=== PATIENT | male | born 1945 | race Caucasian/White ===

== ENCOUNTER 2016-08-02 12:30 | Inpatient (IN) | payer MEDICARE, OTHER ==
[2016-08-12] MEDS ORDERED: CELECOXIB 100 MG CAPSULE PO ONE (06:00)
[2016-08-12] MEDS ORDERED: FAMOTIDINE 20MG TABLET PO ONE (06:00)
[2016-08-12] MEDS ORDERED: MECLIZINE 25 MG TABLET PO ONE (06:00)
[2016-08-12] MEDS ORDERED: VANCOMYCIN HCL 1,000 MG in 0.9 % SODIUM CHLORIDE 250ML 250 ML IVPB ONE (06:00)
[2016-08-12] MEDS ORDERED: ACETAMINOPHEN 1,000 MG/100 ML BTL IV ONE (06:00)
[2016-08-12] MEDS ORDERED: METOCLOPRAMIDE 10 MG TABLET PO ONE (06:00)
[2016-08-12] MEDS ORDERED: TRANEXAMIC ACID 1,000 MG/10 ML ML IV ONE (12:33)
[2016-08-12] MEDS ORDERED: BUPIVACAINE 0.5% W/EPI MPF 30 ML VIAL IVP ONE (12:33)
[2016-08-12] MEDS ORDERED: BUPIVACAINE LIPOSOME 266MG/20ML VIAL IV ONE (12:33)
[2016-08-12] MEDS ORDERED: VANCOMYCIN HCL 1 GM VIAL IVPB ONE (12:33)
[2016-08-12] MEDS ORDERED: MIDAZOLAM HCL 2MG/2ML VIAL IV ONE (13:29)
[2016-08-12] MEDS ORDERED: PROPOFOL 10 MG/ML VIAL IV ONE (13:29)
[2016-08-12] MEDS ORDERED: KETOROLAC 30 MG/ML VIAL IVP ONE (13:29)
[2016-08-12] MEDS ORDERED: FENTANYL PF 100MCG/2ML VIAL IV ONE (13:29)
[2016-08-12 13:49] LABS: ABO GROUP A; ANTIBODY SCREEN NEGATIVE (NEGATIVE); RH TYPE POSITIVE
[2016-08-12] MEDS ORDERED: HYDROMORPHONE HCL 2 MG/ML VIAL IM PRN (15:37)
[2016-08-12] MEDS ORDERED: ACETAMINOPHEN W/ CODEINE 300MG/30MG TABLET PO PRN ×2 (15:37)
[2016-08-12] MEDS ORDERED: DIPHENHYDRAMINE HCL 25 MG CAPSULE PO PRN (15:37)
[2016-08-12] MEDS ORDERED: HYDROCODONE/APAP 5/325MG TABLET PO PRN (15:37)
[2016-08-12] MEDS ORDERED: PROMETHAZINE HCL 12.5 MG in 0.9 % SODIUM CHLORIDE 100ML 50 ML IVPB PRN (15:37)
[2016-08-12] MEDS ORDERED: ZOLPIDEM TARTRATE 5 MG TABLET PO PRN (15:37)
[2016-08-12] MEDS ORDERED: HYDROCODONE/APAP 7.5/325MG TABLET PO PRN ×2 (15:37)
[2016-08-12] MEDS ORDERED: KETOROLAC 30 MG/ML VIAL IVP PRN ×2 (15:37)
[2016-08-12] MEDS ORDERED: NALOXONE 0.4 MG/1 ML VIAL IVP PRN (15:37)
[2016-08-12] MEDS ORDERED: ONDANSETRON HCL IV 4 MG/2 ML VIAL IVP PRN (15:37)
[2016-08-12] MEDS ORDERED: AL HYDROX/MAG HYDROX 30ML UD PO PRN (15:37)
[2016-08-12] MEDS ORDERED: BISACODYL 10 MG SUPP RC PRN (15:37)
[2016-08-12] MEDS ORDERED: ACETAMINOPHEN 325 MG TAB PO PRN (15:37)
[2016-08-12] MEDS ORDERED: ACETAMINOPHEN W/ CODEINE 300MG/60MG TABLET PO PRN ×2 (15:37)
[2016-08-12] MEDS ORDERED: MORPHINE SULFATE 5 MG/ML PFS IVP PRN ×4 (15:37)
[2016-08-12] MEDS ORDERED: TRAMADOL HCL 50 MG TABLET PO PRN ×2 (15:37)
[2016-08-12] MEDS ORDERED: MAGNESIUM HYDROXIDE 30 ML UDC PO PRN (15:37)
[2016-08-12] MEDS ORDERED: HYDROMORPHONE HCL 1 MG/ML CPJ IM PRN (15:37)
[2016-08-12] MEDS ORDERED: METOCLOPRAMIDE HCL 10 MG/2 ML VIAL IVP PRN (15:37)
[2016-08-12] MEDS ORDERED: DEXTROSE 5 % AND 0.9 % NACL 1,000 ML IV PRN (15:37)
[2016-08-12] MEDS: HYDROCODONE/APAP 5/325MG TABLET PO PRN (21:35)
[2016-08-12] MEDS ORDERED: PATIENT OWN MED: MONTELUKAST 10 MG PO SCH (22:00)
[2016-08-12] MEDS ORDERED: PATIENT OWN MED: PRAVASTATIN 80 MG PO SCH (22:00)
[2016-08-12] MEDS: DOCUSATE SODIUM 100 MG CAPSULE PO SCH (23:25)
[2016-08-12] MEDS: FERROUS SULFATE 325 MG TAB PO SCH (23:25)
[2016-08-12] MEDS: PATIENT OWN MED: OMEPRAZOLE 20 MG PO SCH (23:26)
[2016-08-12] MEDS: METOCLOPRAMIDE 10 MG PO SCH (23:26)
[2016-08-12] MEDS: PATIENT OWN MED: METFORMIN 1000 MG PO SCH (23:26)
[2016-08-13] MEDS: VANCOMYCIN HCL 1,000 MG in 0.9 % SODIUM CHLORIDE 250ML 250 ML IVPB SCH ×2 (01:06→12:22)
[2016-08-13 06:35] LABS: HEMATOCRIT 38.5 % (42.0-52.0); HEMOGLOBIN 12.1 gm/dl (14.0-18.0)
[2016-08-13] MEDS: HYDROCODONE/APAP 5/325MG TABLET PO PRN (07:43)
[2016-08-13] MEDS: METOCLOPRAMIDE 10 MG PO SCH (09:47)
[2016-08-13] MEDS: PATIENT OWN MED: METFORMIN 1000 MG PO SCH (09:47)
--- NOTE | 2016-08-13 09:48 | Rehab Evaluation ---
Patient Information - Patient Information Ordered Treatment: PT Evaluate and Treat Status: Initial Evaluation Surgery: Yes (TKA right) Date of Surgery: 08/12/16 Past Medical/Surgical Hx: PAST MEDICAL/SURGICAL HISTORY Past Surgical History rt ankle sx; back sx-upper & lower fusions; triple bypass sx; bilateral carpel tunnel release; rt 5th finger sx; [facility] RTC REPAIR left thumb sx; tonsillectomy PROSTATECTOMY PARTIAL PMH - Respiratory Hx Respiratory Disorders Yes Hx Chronic Obstructive Yes Pulmonary Disease (COPD) Hx Sleep Apnea Yes: WAITING FOR FITTING FOR CPAP Hx of SOB Yes Comment: has sinus problems, LOW O2 SAT RUNS AROUND 93- 94 PMH - Cardiovascular Hx Cardiovascular Disorders Yes Hx Cardiac Catheterization Yes: 1996 Hx Hypertension Yes Hx Coronary Artery Bypass Yes: triple bypass Graft Hx Heart Murmur Yes Exercise Tolerance Fair PMH - Neuro Hx Neurological Disorders Yes Hx Headaches Yes PMH - GI Hx Gastrointestinal Disorders Yes Hx Gastroesophageal Reflux Yes Hx Hiatal Hernia Yes Hx Weight Loss/Weight Gain No: EATING BETTER PMH - Hx Genitourinary Disorders Yes Hx Prostate Problems Yes: CA PMH - Endocrine Hx Endocrine Disorders Yes Hx Diabetes Yes Hx of IDDM Yes: OCC CHECKS BLLOD SUGARS Comment: BLOOD SUGARS RUNS AROUND 160'S PMH - Musculoskeletal Hx Musculoskeletal Disorders Yes Hx Arthritis Yes: rt knee PMH - Psych Hx Psychiatric Problems No PMH - Hematology/Oncology Hx Hematology/Oncology Yes Disorders Hx Cancer Yes Hx Radiation Therapy Yes: 2015 5X/WK X 8 WKS Precautions: [place], Fall - Time With Patient Total Time Spent With Patient (Min): 30 Treatment Procedures: Detail (Patient seen in room and already sitting up in chair, moved tray table and cryocuff and patient able to move sit to stand with CGA only, ambulated with FWW into l[place] and to stairs (about 100 feet) then able to safely ambulate down three steps with FWW folded and rail with proper technique, pivoted around and ambulated back up three steps with same rail and folded walker. Suggested use cane at home for safety on steps as long as has rail to use. Able to ambulate about 150 feet back to room then sat up in chair again with leg supported on tray table and call light close. Did review knee exercises seated: knee bending and straightening, ankle pumps, hip lift and did well.) Subjective Information - Subjective Information Per Patient (Patient lives with in single story condo, all living one floor. Has two steps in from garage and ramp from front entrance. Has prepared house for after surgery and has equipment. FWW here with him in hospital. Expects home health therapy after gets home today.) Objective Data - Pain Pain Present: Yes Pain Scale Used: minimal: ache - Mental Status Patient Orientation: Oriented x3 - Visual Perception Appears within normal limits for therapeutic activities - ROM Within normal limits (Except right knee about -10 degrees extension to 90 degrees flexion) - Strength/Tone Within normal limits (Except right knee 3/5 quads, hams 4+/5, hip 4/5) - Coordination Appears within normal limits for therapeutic activities - Bed Mobility Independent - Transfers Independent - Balance Balance Sitting: Good Balance Standing: Good - Sensation Intact - Gait Detail (Patient able to ambulate in lundy as far as wants to and able to perform stairs without difficulty today: WBAT with FWW.) - Special Tests No Therapy Assessment - Therapy Assessment Detail (Patient is doing extremely well this am and able to do all needs to do already to go home with .) Patient Education - Patient Education Teaching Topic: Equipment Use, Exercise/Activity Response: Return Demonstration Teaching Method: Discussion, Demonstration Teaching Recipient: Patient Barriers To Learning: None Problem List - Problem List Physical Therapy Problem List: Detail (Some issues with mobility with knee stiffness but very little at first day after surgery. Pain controlled and patient moving about quite well.) Goals - Goals Physical Therapy Goals: Independent with bed mobility, transfers and stairs for discharge home with . Prognosis - Prognosis Good (Patient already doing extremely well and has passed all skills necessary to go home with today.) Plan - Plan Physical Therapy Plan: Plan to see patient once more today if does not go home before scheduled appt. Patient has already passed all necessary skills to go home with .
[2016-08-13] MEDS: DOCUSATE SODIUM 100 MG CAPSULE PO SCH ×2 (09:49→09:59)
[2016-08-13] MEDS ORDERED: METOPROLOL 50 MG PO SCH (10:00)
[2016-08-13] MEDS: FERROUS SULFATE 325 MG TAB PO SCH (10:00)
[2016-08-13] MEDS ORDERED: RIVAROXABAN 10 MG TABLET PO SCH (10:00)
[2016-08-13] MEDS ORDERED: CETIRIZINE 10 MG PO SCH (10:00)
[2016-08-13] MEDS ORDERED: SAXAGLIPTIN 5 MG PO SCH (10:00)
[2016-08-13] MEDS ORDERED: LOSARTAN POTASSIUM 25 MG TABLET PO SCH (10:00)
[2016-08-13] MEDS ORDERED: LEVEMIR FLEXTOUCH 100 UNIT/ML INSULIN PEN SQ SCH (10:00)
[2016-08-13] MEDS ORDERED: CELECOXIB 100 MG CAPSULE PO SCH (10:00)
[2016-08-13] MEDS ORDERED: PATIENT OWN MED: AMLODIPINE 5 MG PO SCH (10:00)
[2016-08-13] MEDS ORDERED: VENLAFAXINE 25 MG PO SCH (10:00)
[2016-08-13] MEDS: PATIENT OWN MED: OMEPRAZOLE 20 MG PO SCH (10:43)
[2016-08-13] MEDS ORDERED: BUPIVACAINE 0.5% W/EPI MPF 30 ML VIAL IVP ONE (11:21)
[2016-08-13] MEDS ORDERED: ACETAMINOPHEN 1,000 MG/100 ML BTL IV ONE (11:21)
[2016-08-13] MEDS ORDERED: FAMOTIDINE 20MG TABLET PO ONE (11:21)
[2016-08-13] MEDS ORDERED: CELECOXIB 100 MG CAPSULE PO ONE (11:21)
[2016-08-13] MEDS ORDERED: METOCLOPRAMIDE 10 MG TABLET PO ONE (11:21)
[2016-08-13] MEDS ORDERED: MECLIZINE 25 MG TABLET PO ONE (11:21)
[2016-08-13] MEDS ORDERED: TRANEXAMIC ACID 1,000 MG/10 ML ML IV ONE (11:21)
--- NOTE | 2016-08-13 12:45 | Rehab Evaluation ---
Patient Information - Patient Information Diagnosis: Right TKA Ordered Treatment: OT Evaluate and Treat Status: Initial Evaluation Surgery: Yes (TKA right) Date of Surgery: 08/12/16 Past Medical/Surgical Hx: PAST MEDICAL/SURGICAL HISTORY Past Surgical History rt ankle sx; back sx-upper & lower fusions; triple bypass sx; bilateral carpel tunnel release; rt 5th finger sx; [facility] RTC REPAIR left thumb sx; tonsillectomy PROSTATECTOMY PARTIAL PMH - Respiratory Hx Respiratory Disorders Yes Hx Chronic Obstructive Yes Pulmonary Disease (COPD) Hx Sleep Apnea Yes: WAITING FOR FITTING FOR CPAP Hx of SOB Yes Comment: has sinus problems, LOW O2 SAT RUNS AROUND 93- 94 PMH - Cardiovascular Hx Cardiovascular Disorders Yes Hx Cardiac Catheterization Yes: 1996 Hx Hypertension Yes Hx Coronary Artery Bypass Yes: triple bypass Graft Hx Heart Murmur Yes Exercise Tolerance Fair PMH - Neuro Hx Neurological Disorders Yes Hx Headaches Yes PMH - GI Hx Gastrointestinal Disorders Yes Hx Gastroesophageal Reflux Yes Hx Hiatal Hernia Yes Hx Weight Loss/Weight Gain No: EATING BETTER PMH - Hx Genitourinary Disorders Yes Hx Prostate Problems Yes: [place] PMH - Endocrine Hx Endocrine Disorders Yes Hx Diabetes Yes Hx of IDDM Yes: OCC CHECKS BLLOD SUGARS Comment: BLOOD SUGARS RUNS AROUND 160'S PMH - Musculoskeletal Hx Musculoskeletal Disorders Yes Hx Arthritis Yes: rt knee PMH - Psych Hx Psychiatric Problems No PMH - Hematology/Oncology Hx Hematology/Oncology Yes Disorders Hx Cancer Yes Hx Radiation Therapy Yes: 2015 5X/WK X 8 WKS Premorbid Status: Detail (Pt lives with spouse in a 1st floor condo, no steps at front entrance, 2 small steps at rear entrance with a railing. He has a walk in shower with a seat and 1 grab bar, he usually stands to shower. Pt has an elevated toilet without grab bars. He and spouse share home mgmt, meal prep and laundry. He has a 2 wheeled walker.) Precautions: [place], Fall - Time With Patient Total Time Spent With Patient (Min): 30 Treatment Procedures: Detail (OT eval low complexity) Subjective Information - Subjective Information Per Patient Objective Data - Mental Status Patient Orientation: Oriented x3 - Visual Perception Appears within normal limits for therapeutic activities - ROM Within normal limits (Cesario UE AROM WNL) - Strength/Tone Within normal limits (Cesario UE MMT WNL) - Coordination Appears within normal limits for therapeutic activities - ADL's/IADL's Detail (Pt reports his assisted him with LE dressing this am, reviewed modified dressing techniques and available adaptive equipment. Pt and spouse feel he will have no problems at home with ADLs.) Therapy Assessment - Therapy Assessment Detail (Pt and spouse verbalized understanding of modified dressing techniques and use of equipment.) Problem List - Problem List Physical Therapy Problem List: Detail (Some issues with mobility with knee stiffness but very little at first day after surgery. Pain controlled and patient moving about quite well.) Occupational Therapy Problem List: Detail (No current OT problems identified.) Goals - Goals Physical Therapy Goals: Independent with bed mobility, transfers and stairs for discharge home with . Occupational Therapy Goals: No current OT goals identified. Prognosis - Prognosis Good Plan - Plan Physical Therapy Plan: Plan to see patient once more today if does not go home before scheduled appt. Patient has already passed all necessary skills to go home with . Occupational Therapy Plan: Pt is discharged from IP OT, he will have a f/u home OT assessment to determine needs in the home setting.
--- NOTE | 2016-08-20 16:42 | Operative Note ---
DATE OF SURGERY: 08/12/2016 PREOPERATIVE DIAGNOSIS: Right knee arthrosis. POSTOPERATIVE DIAGNOSIS: Right knee arthrosis. OPERATION: Right total knee arthroplasty. Surgeon: Lloyd Morales MD Anesthesia: Spinal. PACKING HOUSE LABORER: Cathryn COMPLICATIONS: None. Blood Loss: Minimal. TOURNIQUET TIME: 50 minutes OPERATIVE FINDINGS: Chondromalacia of medial and lateral compartments. COMPONENTS PLACED: A 2 g vancomycin [employer] Journey 2 Oxinium size 6 femoral component, size 6 tibial baseplate, a 9 mm thick tibial poly insert, and a 35 mm cemented patellar component. Indication: This 71-year-old male has had pain in his knee for several years. This failed nonoperative treatment, injections and he wished to proceed with knee replacement at this point. I explained all risks and benefits of the surgery in detail for the diagnosis and procedures including but not limited to infection, nerve injury, vessel injury, some pain, stiffness, numbness, tearing of the knee, periprosthetic fracture, need for resection arthroplasty, blood clot, need for anticoagulation to prevent blood clots and the risks associated with these medications and all his questions were answered. Course was outlined and he agreed to proceed. PROCEDURE: The patient brought to the OR and placed in supine position. Spinal anesthesia induced. The right lower extremity and knee were prepped and draped in sterile fashion. Time-out was performed. Next, the leg exsanguinated, tourniquet placed 250 mmHg pressure. The skin and subcutaneous dissected down. Incised the capsule medially around the medial border of patella to the tibial tubercle. Incised the vastus medialis in line with its fibers in mid vastus approach. Everted the patella, partially resected retropatellar fat pad. Flexed the knee. Drilled the intracondylar drill hole, inserted intramedullary guide jaime and 6 degree cutting block. Lined up the distal femoral condyle and pinned it in place in the +2 mm position and cut the distal femoral condyles. Placed a sizing jig in distal femoral condyles and sized on 6. We placed a size 6 cutting jig in previously-placed holes and dialed in the anterior cut of the anterior chamfer cut and cut the anterior cut. It was flush cut without notching. We pinned it and cut the remainder of chamfer cuts. Placed a size 6 trial, centered it, pinned it. Removed the osteophytes, resected , hollowed and reamed out and box osteotome and cruciate bone block. Next, we turned to the tibia. Placed the extra-alignment jig, spikes in the tubercular groove off the central third tibial tubercle in reference for a 7 mm cut off the higher lateral plateau. We pinned the cutting jig in place provisionally with the anterior and posterior pins. We rechecked alignment of the cutting jig, used drop rods, centered until we had tibial anatomic access, cross-pinned it and cut the tibia. Removed osteophytes at the posterior femoral condyles with curet osteotome. Checked the flexion/extension gaps and they were symmetric with a poly inserted to allow for 2-3 mm varus/valgus laxity. I checked the overall alignment cuts and extension, alignment jaime centered on the hip joint and ankle joint. Next, we took the knee into flexion. Sized the tibial baseplate size 6. Replaced all trial components. Set the rotation tibial baseplate again in extension using alignment jaime centered on the hip joint and ankle joint. Marked with electrocautery cardona on the anterior tibial cortex off the laser cardona and tibial baseplate and cut. Next, attention turned to patella. Measured patella, a 24 mm, set the cutting jig at 15 mm to allow for 9 mm thick poly insert. Cut the patella. Chamfered off the lateral patellar facet. Remeasures right on 15 sized to be 35. Drilled 3 peg holes, mixed cement. Trial range of motion. Patella tracked nicely and spur-free, full extension, flexion to 140 degrees. He had symmetric flexion/extension gaps. Changed gloves, brought in clean sheet, irrigated copiously all bony surfaces, pulse lavage, antibiotic solution. Placed bone plug in the femoral canal hole and placed a drill bit in the tibial hole and precoated both surfaces then back down to the tibial component, then the femoral component removing excess cement. Placed the trial tibial poly liner, held the knee in extension, clamped down the patella until the cement hardened. Flexed the knee. Distracted the knee with a bone hook and sponge. Irrigated copiously. Removed excess cement around edges of components. We then injected multiple sticks 2-3 cm apart to 2 cm deep with 0.5% Marcaine with epi, 2 g of tranexamic acid and Exparel mixture at the posterior, medial, and lateral capsule, periosteum medially and laterally , vastus medialis, quadriceps and subcutaneous area. Next we then inserted the real tibia poly insert, verified that it was interlocking and final range of motion was the same. Irrigated. Closed the vastus medialis and capsule with running #2 Quill, closed the knee with 2-0 Vicryl and martina, injected . Sterile dressing applied and Fede wrap. The patient tolerated the procedure well. No intraoperative complications. Sponge, needle, and blade counts correct. To recovery room stable. Can be discharged to the floor with likely discharge in 1-2 days home. MICHELLE
== END 2016-08-13 13:30 | disposition home health service (06) | DRG 470 ==
LOC: MEDSURG 08-12 11:51
PROVIDERS: ADMIT Orthopaedic Surgery; ATTEND Orthopaedic Surgery
PROC: 0SRC0J9 Replacement of Right Knee Joint with Synthetic Substitute, Cemented, Open Approach (ICD-10-PCS; principal; 2016-08-12 14:00)
DX: M17.11 Unilateral primary osteoarthritis, right knee (principal); M94.261 Chondromalacia, right knee; E11.9 Type 2 diabetes mellitus without complications; Z79.4 Long term (current) use of insulin; I10 Essential (primary) hypertension; E78.00 Pure hypercholesterolemia, unspecified; Z79.84 Long term (current) use of oral hypoglycemic drugs
CPT/HCPCS: 36416; 82948; 85014; 85018; 86850; 86900; 86901; 94760; 97165; J1885; J2405; J7050